=== PATIENT | male | born 1950 | race Caucasian/White ===

== ENCOUNTER 2016-04-30 10:10 | Emergency (ER) | payer OTHER ==
[~2016-04-30] VITALS: Wt 81.0 kg
[~2016-04-30 10:10] MED LIST: TRAM50TA2 PO
[2016-04-30] MEDS ORDERED: IBUP-1542 PO (15:47)
--- NOTE | 2016-04-30 15:47 | RADRPT ---
PROCEDURE: Left foot series. CLINICAL INDICATION: Left foot pain after recent trauma TECHNIQUE: Three views of the left foot are available for review. COMPARISON: None available FINDINGS: There is normal mineralization and alignment of the bones of the left foot. Lisfranc's joint appear s intact. There is no evidence of acute fracture or dislocation. Joint spaces are well maintained. No osteophytes or erosions are seen. The soft tissues are within normal limits. IMPRESSION: 1. Unremarkable left foot series. RPTAT: KK .Shane Lofton MD, MD Date Time Electronically viewed and signed by .Shane Lofton MD, on 04/30/2016 15:46 .B/
--- NOTE | 2016-04-30 15:48 | RADRPT ---
PROCEDURE: Left ankle series. CLINICAL INDICATION: Left ankle pain after recent fall TECHNIQUE: Three views of the left ankle were performed. COMPARISON: None. FINDINGS: There is normal mineralization and alignment of the bones of the left ankle. There is a nondisplace d oblique fracture of the distal fibula. No other fractures are identified. The medial mortise is suboptimally evaluated but appears within normal limits. No joint effusion is identified. There is m ild diffuse soft tissue swelling.. IMPRESSION: 1. Nondisplaced oblique distal fibular fracture. RPTAT: KK .Shane Lofton MD, MD Date Time Electronically viewed and signed by .Shane Lofton MD, on 04/30/2016 15:48 .B/
--- NOTE | 2016-04-30 15:58 | ERD ---
ER Documentation Chief Complaint Date/Time DATE: 04/30/16 TIME: 15:49 Chief Complaint LEFT FOOT AND ANKLE PAIN SINCE LAST NIGHT. MILD SWELLING NO DEFORMITY HPI 66-year-old male complaining of left foot and ankle pain and swelling. Patient stated that he fell at home about 2 weeks ago, twisted his ankle during the fall. He has been walking on it ever since. Pain and swelling has been progressively worse. He saw his PCP yesterday, was told to come to the ER for an x-ray. He has history of BPH and peripheral neuropathy. Denies fever or chills. ROS All systems reviewed and are negative except as per history of present illness. Medications Home Meds Active Scripts Ibuprofen* (Motrin*) 600 Mg Tab, 600 MG PO Q6H Y for PAIN AND OR ELEVATED TEMP, #30 TAB Prov:RICARDO JEFFERSON LIFESTYLE COORDINATOR 04/30/16 Tramadol HCl (Tramadol HCl) 50 Mg Tablet, 50 MG PO Q4 Y for PAIN, #20 TAB Prov:KASSANDRA KELLEY PA-C 12/14/15 PMhx/Soc History of Surgery: Yes (tonsilectomy) Anesthesia Reaction: No Hx Neurological Disorder: No Hx Respiratory Disorders: No Hx Cardiac Disorders: No Hx Psychiatric Problems: No Hx Miscellaneous Medical Probl: Yes (enlarge prostate,neurophaty) Hx Alcohol Use: No Hx Substance Use: No Hx Tobacco Use: Yes Smoking Status: Current every day smoker Physical Exam Vitals Vital Signs Date Time Temp Pulse Resp B/P Pulse Ox O2 Delivery O2 Flow Rate FiO2 04/30/16 10:27 98.3 98 20 124/71 96 Physical Exam General impression: Well-developed, well-nourished. Alert, oriented, in no acute distress. Patient walks with a limp. Head: Normocephalic, atraumatic. Eyes: PERRL, EOM normal. Conjunctiva not injected. Neck: Supple, nontender. No lymphadenopathy. No nuchal rigidity. Respiration: Normal respiratory effort. Lungs clear to auscultate bilaterally. No wheezes, rales or rhonchi. Cardiovascular: Regular rate and rhythm. No murmurs or extra heart sounds. Extremities: Left ankle and foot erythematous and swollen, no bilateral malleoli tenderness. Tenderness in the dorsal aspect of the left foot. Markedly reduced range of motion of the left ankle. Neurovascularly intact distal to the injury. Neuro: Mental status normal, speech normal. WELT SEWER grossly intact. Skin: Normal turgor. No rash or lesions. Psych: Normal mood and affect. Results 24 hrs PROCEDURE: Left ankle series. CLINICAL INDICATION: Left ankle pain after recent fall TECHNIQUE: Three views of the left ankle were performed. COMPARISON: None. FINDINGS: There is normal mineralization and alignment of the bones of the left ankle. There is a nondisplaced oblique fracture of the distal fibula. No other fractures are identified. The medial mortise is suboptimally evaluated but appears within normal limits. No joint effusion is identified. There is mild diffuse soft tissue swelling.. IMPRESSION: 1. Nondisplaced oblique distal fibular fracture. RPTAT: KK .Shane Lofton MD, MD Date Time Electronically viewed and signed by .Shane Lofton MD, MD on 2016 15:48 .B/ CC: RICARDO JEFFERSON NP PROCEDURE: Left foot series. CLINICAL INDICATION: Left foot pain after recent trauma TECHNIQUE: Three views of the left foot are available for review. COMPARISON: None available FINDINGS: There is normal mineralization and alignment of the bones of the left foot. Lisfranc's joint appears intact. There is no evidence of acute fracture or dislocation. Joint spaces are well maintained. No osteophytes or erosions are seen. The soft tissues are within normal limits. IMPRESSION: 1. Unremarkable left foot series. RPTAT: KK .Shane Lofton MD, MD Date Time Electronically viewed and signed by .Shane Lofton MD, MD on 2016 15:46 .B/ CC: RICARDO JEFFERSON LIFESTYLE COORDINATOR Procedures/MDM Well-appearing 66-year-old male presented to ED with left ankle and foot pain and swelling. X-ray left ankle showed a non displaced oblique fracture of the distal fibula. X-ray left foot was unremarkable. The area of injury was immobilized with a posterior ankle splint. Patient was noted to be comfortable and neurovascularly intact both before and after the immobilization. Patient also given orthoboot. Patient advised to follow-up with his PCP for orthopedic referral. Patient appears well, stable for discharge and outpatient management. Medical decision making shared with patient and family. Education provided to patient and family. Patient and family expressed understanding of the plan. Medications on discharge: Ibuprofen. Follow-up: Primary care provider in 2-3 days or return to ED if worse. The case was reviewed and discussed with Dr. Akins, who agrees with the plan of care including labs, treatment, and advanced imaging as appropriate. Departure Diagnosis: Primary Impression: Fracture of distal end of left fibula Encounter type: initial encounter Fracture type: closed Fracture morphology : torus Qualified Code: S82.822A - Closed torus fracture of distal end of left fibula, initial encounter Condition: Good Patient Instructions: Ankle Fracture (Distal Fibula), Closed Referrals: [facility] YOU HAVE RECEIVED A MEDICAL SCREENING EXAM AND THE RESULTS INDICATE THAT YOU DO NOT HAVE A CONDITION THAT REQUIRES URGENT TREATMENT IN THE EMERGENCY DEPARTMENT. FURTHER EVALUATION AND TREATMENT OF YOUR CONDITION CAN WAIT UNTIL YOU ARE SEEN IN YOUR DOCTORS OFFICE WITHIN THE NEXT 1-2 DAYS. IT IS YOUR RESPONSIBILITY TO MAKE AN APPOINTMENT FOR FOLOW-UP CARE. IF YOU HAVE A PRIMARY DOCTOR --you should call your primary doctor and schedule an appointment IF YOU DO NOT HAVE A PRIMARY DOCTOR YOU CAN CALL OUR PHYSICIAN REFERRAL HOTLINE AT IF YOU CAN NOT AFFORD TO SEE A PHYSICIAN YOU CAN CHOSE FROM THE FOLLOWING [facility] [address] [place] [facility] [address] [facility] [facility] [address] [facility] [address] [facility] [address] [facility] [address] Additional Instructions: SPECIALIST: YOU HAVE A MEDICAL CONDITION WHICH REQUIRES YOU TO SEE A SPECIALIST WITHIN THE NEXT 1-2 DAYS. PLEASE FOLLOW UP WITH YOUR PRIMARY PHYSICIAN FOR REFFERAL.IF YOU DO NOT HAVE A PRIMARY CARE PHYSICIAN AND/OR YOU CAN NOT AFFORD TO SEE A PHYSICIAN THE FOLLOWING RESOURCES HAVE BEEN SUPPLIED TO YOU. IT IS YOUR RESPONSIBILITY TO BE SEEN BY THE SPECIALIST FOLLOW UP WITH YOUR PRIMARY CARE PHYSICIAN TOMORROW.Return to this facility if you are not improving as expected. RICARDO JEFFERSON. SHEILA Apr 30, 2016 15:58
== END 2016-04-30 16:08 | disposition home or self-care (01) ==
LOC: FTE 10:10
DX: S82.822A Torus fracture of lower end of left fibula, initial encounter for closed fracture (principal); F17.210 Nicotine dependence, cigarettes, uncomplicated; W18.39XA Other fall on same level, initial encounter; Y92.9 Unspecified place or not applicable
CPT/HCPCS: 29515; 73610; 73630; Z7502

== ENCOUNTER 2017-04-13 10:41 | Emergency (ER) | END 2017-04-13 16:36 | disposition home or self-care (01) ==

== ENCOUNTER 2018-01-16 12:38 | Emergency (ER) | END 2018-01-16 15:50 | disposition home or self-care (01) ==